=== PATIENT | female | born 1965 | race Caucasian/White ===

== ENCOUNTER 2021-11-02 08:07 | Day surgery (SDC) | payer OTHER ==
[~2021-11-02] VITALS: Ht 160 cm; Wt 77.1 kg
[~2021-11-02 08:07] MED LIST: CEFAZOLIN SOD 1 GM in D5W 50 ML IV ONE
[2021-11-02] MEDS ORDERED: BUPIVACAINE /EPINEPHRINE/PF 0.25% 30 ML VIAL INJ ONE (13:35)
[2021-11-02] MEDS ORDERED: DEXAMETHASONE SOD PHOSPHATE 4 MG/ML VIAL ONE (13:35)
[2021-11-02] MEDS ORDERED: NS IRRIG SOLN 1000 ML IR ONE (13:35)
[2021-11-02] MEDS ORDERED: fentaNYL CITRATE 250 MCG/5 ML AMP ONE (13:35)
[2021-11-02] MEDS ORDERED: PROPOFOL 200MG/ 20ML VIAL (DIPRIVAN) IV ONE (13:35)
[2021-11-02] MEDS ORDERED: SEVOFLURANE 15 MIN GAS INH ONE (13:35)
[2021-11-02] MEDS ORDERED: METOCLOPRAMIDE HCL 10 MG/2 ML VIAL ONE (13:35)
[2021-11-02] MEDS ORDERED: ceFAZolin SODIUM 1 GM VIAL ONE (13:35)
[2021-11-02] MEDS ORDERED: MIDAZOLAM HCL 5 MG/ML VIAL (VERSED) IV ONE (13:35)
[2021-11-02] MEDS ORDERED: LR 1,000 ML IV.SOLN IV ONE (13:35)
[2021-11-02] MEDS ORDERED: ONDANSETRON HCL 4 MG/2 ML VIAL ONE (13:35)
[2021-11-02] MEDS ORDERED: GLYCOPYRROLATE 0.2 MG/ML VIAL ONE (13:35)
[2021-11-02] MEDS ORDERED: KETOROLAC TROMETHAMINE 30 MG VIAL ONE (13:35)
[2021-11-02] MEDS ORDERED: ONDANSETRON HCL 4 MG/2 ML VIAL IVP ONE (15:00)
[2021-11-02] MEDS ORDERED: HYDROmorphone 1 MG/ML INJ. CARTRIDGE IVP PRN (15:00)
[2021-11-02] MEDS: HYDROmorphone 1 MG/ML INJ. CARTRIDGE ONE ×2 (15:10→15:21)
[2021-11-02 16:05] VITALS: BP_SYST 112
[2021-11-02] MEDS ORDERED: MORPHINE 4 MG INJ. 4 MG/ML VIAL IM ONE (16:45)
[2021-11-02] MEDS ORDERED: MORPHINE SULFATE 10 MG/ML VIAL ONE (16:45)
== END 2021-11-02 18:10 | disposition home or self-care (01) ==
LOC: SDS 08:07 → SMU 08:09 → EDSTATUS 10:00 → SDS 18:10
PROVIDERS: ATTEND Surgery
DX: N63.11 Unspecified lump in the right breast, upper outer quadrant (principal); M79.7 Fibromyalgia; E11.9 Type 2 diabetes mellitus without complications; Z79.01 Long term (current) use of anticoagulants; Z20.822 Contact with and (suspected) exposure to COVID-19; Z79.899 Other long term (current) drug therapy
CPT/HCPCS: 19125; 36415 ×2; 82962; 87426; 88307; J0690; J1100; J1170; J1885; J2250; J2270; J2405; J2704; J2765; J3010; J3490 ×2; J7060; J7120; U0003; 88305